=== PATIENT | female | born 1995 | race Caucasian/White ===

== ENCOUNTER → 2019-09-12 | Outpatient (CLI) | payer BC ==
[~2019-09-12] MED LIST: CEPHALEXIN500 M1 PO; MOTRIN 800800 MG/TAB PO; MULTIPLE VITAMI1 CAP PO; NO HOME MEDICATIONS; NORCO 325 MG-51 TAB PO; TYLENOL #3 301 UDTAB PO
== END ==
LOC: MC.RAD 06:59
DX: N63.24 Unspecified lump in the left breast, lower inner quadrant (principal); N63.14 Unspecified lump in the right breast, lower inner quadrant

== ENCOUNTER 2019-12-08 20:14 | Emergency (ER) | payer BC ==
[~2019-12-08] VITALS: Ht 167.6 cm; Wt 54.5 kg
[2019-12-08 20:20] VITALS: BP 139/101; TEMP 98.5
[2019-12-08 20:46] LABS: HEMATOCRIT 41.4 % (37.0-47.0); HEMOGLOBIN 14.2 g/dl (12.5-16.0); MEAN CELL VOLUME 94 fl (80.0-100.0); MEAN CORPUSCULAR HEMOGLOBIN 32 pg (27.0-31.0); MEAN CORPUSCULAR HGB CONC 34 g/dl (33.0-37.0); MEAN PLATELET VOLUME 9.6 fl (7.4-10.4); PLATELET COUNT 352 K/mm3 (130-400); RED BLOOD COUNT 4.43 M/mm3 (4.10-5.30); REDCELL DISTRIBUTION WIDTH-CV 11.5 % (11.5-14.5)
[2019-12-08 21:00] LABS: ALBUMIN 4.8 gm/dL (3.5-5.0); BILIRUBIN,TOTAL 0.4 mg/dL (0.0-1.0); C-REACTIVE PROTEIN 1.1 mg/dL (0.0-0.9); CALCIUM 9.2 mg/dL (8.4-10.2); CREATININE, serum 1.05 (0.52-1.25); POTASSIUM 3.7 mmol/L (3.4-5.0); TOTAL PROTEIN 8.4 gm/dL (6.4-8.2)
[2019-12-08 21:07] LABS: COLLECTION METHOD CLEAN CATCH
[2019-12-08 21:19] LABS: MUCOUS Present /lpf; PH 7 (5-8); URINE APPEARANCE Hazy; URINE BACTERIA Rare /hpf; URINE BILIRUBIN Negative (NEGATIVE); URINE BLOOD Negative (NEGATIVE); URINE COLOR Yellow; URINE GLUCOSE Negative (NEGATIVE); URINE KETONE Negative (NEGATIVE); URINE LEUKOCYTE ESTERASE 2+ (NEGATIVE); URINE NITRATE Negative (NEGATIVE); URINE PROTEIN(semi-quant) Negative (NEGATIVE); URINE RBC 0-2 /hpf; URINE UROBILINOGEN Negative (NEGATIVE)
[2019-12-08 21:27] LABS: EOSINOPHIL 1 % (0-4); LYMPHOCYTE 43 % (20.0-51.0); NEUTROPHILS 52 % (42.0-75.2)
[2019-12-08 21:28] LABS: OVALOCYTES 1+; TEAR DROP CELLS 2+
[2019-12-08 21:29] LABS: PLATELET ESTIMATE NORMAL (NORMAL)
[2019-12-08 22:17] VITALS: PULSE 86
== END 2019-12-08 22:16 | disposition home or self-care (01) ==
LOC: COL.ER 20:14
PROVIDERS: Family Medicine
DX: K59.00 Constipation, unspecified (principal)
CPT/HCPCS: J2405; J7120; Q9967